=== PATIENT | female | born 1975 | race Caucasian/White ===

== ENCOUNTER 2020-05-25 20:26 | Inpatient (IN) | payer OTHER ==
[~2020-05-25] VITALS: Ht 157.5 cm; Wt 88.0 kg
[2020-05-25 20:45] VITALS: Ht 157.5 cm; Wt 88.0 kg
[2020-05-25 21:20] LABS: CALCIUM 8.6 mg/dL (8.5-10.1); CARBON DIOXIDE 25.2 mmol/L (21-32); CHLORIDE SERUM 103 mmol/L (98-107); CREATININE SERUM 0.7 mg/dL (0.6-1.0); GFR1 > 60 mL/min; GLUCOSE SERUM 111 mg/dL (74-106); POTASSIUM SERUM 3.7 mmol/L (3.5-5.1); SODIUM SERUM 138 mmol/L (136-145)
[2020-05-25 21:30] LABS: BASOPHIL % 0.3 % (0-2); PLATELET COUNT 247 x10^3mcL (130-400); RED CELL DISTRIBUTION WIDTH 14.5 % (11.5-14.5)
[2020-05-25 21:32] LABS: ALBUMIN 3.6 g/dL (3.4-5.0); ALKALINE PHOSPHATASE 323 U/L (46-116); AST/SGOT 555 U/L (15-37); LIPASE 154 IU/L (73-393); TOTAL PROTEIN, SERUM 7.9 g/dL (6.4-8.2)
[2020-05-25 22:03] LABS: ALT/SGPT 1054 U/L (14-59)
[2020-05-26 00:23] LABS: UA SPECIFIC GRAVITY 1.025 (1.005-1.035); microscopic required? YES; urine erythrocyte NEGATIVE (NEGATIVE)
[2020-05-26] MEDS ORDERED: MACROBID100 MG PO (02:05)
[2020-05-26 03:43] VITALS: BP 138/89
[2020-05-26 08:24] VITALS: BP 110/73
[2020-05-26 12:22] VITALS: BP 102/58
[2020-05-26 16:35] VITALS: BP 117/75
[2020-05-26 20:35] VITALS: BP 116/81
[2020-05-27 05:31] VITALS: BP 124/75
[2020-05-27 06:26] LABS: BASOPHIL % 0.4 % (0-2); PLATELET COUNT 228 x10^3mcL (130-400)
[2020-05-27 06:57] LABS: RED CELL DISTRIBUTION WIDTH 15.3 % (11.5-14.5)
[2020-05-27 06:59] LABS: ALKALINE PHOSPHATASE 296 U/L (46-116); ALT/SGPT 651 U/L (14-59); AST/SGOT 180 U/L (15-37); BILIRUBIN TOTAL 1.6 mg/dL (0.20-1.00); CALCIUM 8.2 mg/dL (8.5-10.1); CARBON DIOXIDE 26.2 mmol/L (21-32); CHLORIDE SERUM 105 mmol/L (98-107); CREATININE SERUM 0.6 mg/dL (0.6-1.0); GFR1 > 60 mL/min; GLUCOSE SERUM 99 mg/dL (74-106); PHOSPHOROUS 2.8 mg/dL (2.5-4.9); POTASSIUM SERUM 3.7 mmol/L (3.5-5.1); SODIUM SERUM 137 mmol/L (136-145); TOTAL PROTEIN, SERUM 6.9 g/dL (6.4-8.2)
[2020-05-27 07:01] LABS: ALBUMIN 3.1 g/dL (3.4-5.0)
[2020-05-27 13:16] VITALS: BP 113/74
[2020-05-27 16:34] VITALS: BP 113/74
[2020-05-27 16:40] VITALS: BP 103/81
== END 2020-05-27 18:20 | disposition home or self-care (01) ==
LOC: ED 20:26 → DU 05-26 01:16 → EDBEDREQSVC 05-26 01:26 → DU 05-26 02:54
PROVIDERS: Emergency Medicine; Internal Medicine Gastroenterology; ADMIT Hospitalist; ATTEND Hospitalist
PROC: 0F798ZZ Dilation of Common Bile Duct, Via Natural or Artificial Opening Endoscopic (ICD-10-PCS; principal; 2020-05-27 09:00)
DX: K80.50 Calculus of bile duct without cholangitis or cholecystitis without obstruction (principal); E66.01 Morbid (severe) obesity due to excess calories; D25.9 Leiomyoma of uterus, unspecified; Z20.828 Contact with and (suspected) exposure to other viral communicable diseases; K58.9 Irritable bowel syndrome, unspecified; Z90.49 Acquired absence of other specified parts of digestive tract; Z79.899 Other long term (current) drug therapy; Z68.35 Body mass index [BMI] 35.0-35.9, adult
CPT/HCPCS: 43220; 43262; 82390; C1769; G0378; J0696; J1610; J1885; J2175; J2270; J2405; J3010; J7050; Q0092; Q9967